=== PATIENT | female | born 1945 | race Caucasian/White ===

== ENCOUNTER → 2019-05-05 | Outpatient (REF) | payer OTHER, MEDICAID | LOC: M LAB REF 09:29 | PROVIDERS: ATTEND Nurse Practitioner Family | DX: R30.0 Dysuria (principal) ==

== ENCOUNTER → 2019-06-18 | Outpatient (REF) | payer OTHER, MEDICAID | LOC: M LAB REF 16:24 | PROVIDERS: ATTEND Internal Medicine | DX: R41.0 Disorientation, unspecified (principal); R30.0 Dysuria ==

== ENCOUNTER 2019-12-03 12:59 | Observation (INO) | payer MEDICARE, MEDICAID ==
[~2019-12-03] VITALS: Ht 165.1 cm; Wt 69.4 kg
[2019-12-03] MEDS ORDERED: LIDOCAINE 2% 5ML JELLY UROJET TOP ONE (13:45)
[2019-12-03] MEDS: NS 1,000 ML IV SCH (14:18)
[2019-12-03 14:30] LABS: BASO # 0.1 10^3/uL (0.0-0.2); BASO % 0.6 % (0.0-1.0); EOS # 0.2 10^3/uL (0.0-0.5); EOS % 1.9 % (0.0-3.0); HEMATOCRIT 38.5 % (36.0-47.0); HEMOGLOBIN 12.4 g/dl (12.0-15.5); LYMPH # 2.7 10^3/uL (1.5-5.0); LYMPH % 34.2 % (24.0-44.0); MEAN CORPUSCULAR HEMOGLOBIN 29.8 pg (27.0-33.0); MEAN CORPUSCULAR HGB CONC 32.2 g/dl (32.0-36.5); MEAN CORPUSCULAR VOLUME 92.5 fl (80.0-96.0); MONO # 0.7 10^3/uL (0.0-0.8); NEUTROPHILS # 4.2 10^3/uL (1.5-8.5); PLATELET COUNT, AUTOMATED 247 10^3/uL (150-450); RED BLOOD COUNT 4.16 10^6/uL (4.00-5.40); WHITE BLOOD COUNT 7.7 10^3/uL (4.0-10.0)
[2019-12-03 14:42] LABS: INR 0.97; PROTHROMBIN TIME 12.6 SECONDS (11.8-14.0)
[2019-12-03 14:51] LABS: ALBUMIN 3.3 GM/DL (3.2-5.2); BILIRUBIN,DIRECT 0.1 MG/DL (0.0-0.2); BILIRUBIN,TOTAL 0.3 MG/DL (0.2-1.0); CALCIUM LEVEL 9.6 MG/DL (8.8-10.2); CREATININE FOR GFR 0.98 MG/DL (0.55-1.30); GLOMERULAR FILTRATION RATE 58.9 (>39); POTASSIUM SERUM 4.6 MEQ/L (3.5-5.1); TOTAL PROTEIN 6.1 GM/DL (6.4-8.2)
[2019-12-03] MEDS ORDERED: ASPIRIN 325 MG TAB PO ONE (15:30)
[2019-12-03] MEDS ORDERED: SERT25TA21 PO (15:31)
[2019-12-03] MEDS ORDERED: LISI10TA4 PO (15:31)
[2019-12-03] MEDS ORDERED: TRAZ-252 PO (15:31)
[2019-12-03] MEDS ORDERED: TAB-TAB3 PO (15:31)
[2019-12-03] MEDS ORDERED: COMB0.2S OU (15:31)
[2019-12-03] MEDS ORDERED: BIMA01SOL OU (15:31)
[2019-12-03] MEDS ORDERED: MEMA28CA PO (15:31)
[2019-12-03] MEDS ORDERED: OLAN20TA14 PO (15:31)
[2019-12-03] MEDS ORDERED: ECOT81TA5 PO (15:32)
--- NOTE | 2019-12-03 15:52 | REP ---
CT BRAIN WITHOUT CONTRAST: HISTORY: Collapse. No comparison CT study. Comparison brain MRI exam is from March 16, 2015. CT FINDINGS: Digital preliminary investigator welfare radiograph is unremarkable. Bone window settings demonstrate an intact calvarium. There is some vascular calcification in the distal internal carotid arteries bilaterally. The visualized paranasal sinuses are clear. No intraorbital abnormality is seen. On soft tissue window settings, there is mild generalized volume loss. There is an old lacunar infarct pattern in the basal ganglia on the left. There is no evidence of acute infarction. There is no evidence of intracranial hemorrhage. The left basal ganglia infarct pattern is unchanged from the comparison MRI study 2014. IMPRESSION: Diffuse atrophy, vascular calcification and old left basal ganglia lacunar infarcts. No acute intracranial abnormality is seen. Electronically Signed by Kartik Martin MD 12/03/2019 03:53 P
[2019-12-03 16:07] LABS: FREE T4 1.22 NG/DL (0.76-1.46); THYROID STIMULATING HORMONE 2.28 uIU/ML (0.358-3.740)
--- NOTE | 2019-12-03 16:11 | REP ---
CHEST, SINGLE VIEW: There is no evidence of acute infiltrate. No pleural effusion is seen. The heart is normal in size. The mediastinal silhouette is unremarkable. The visualized osseous structures are intact. IMPRESSION: No acute pulmonary disease. Electronically Signed by James Arellano MD 12/06/2019 12:00 P
--- NOTE | 2019-12-03 16:57 | HPEPDOC ---
[facility] Medical History & Physical Date of Admission December 03, 2019 Date of Service: December 03, 2019 Attending Physician: A History and Physical CHIEF COMPLAINT: falls and new onset A.fib HISTORY OF PRESENT ILLNESS: Patient is a 74-year-old female with past medical history of hypertension, dementia, presenting with falls. In the ED she was found to have a new onset atrial fibrillation. She lives with daughter, Mariaelena, who is the healthcare proxy, for the last 2 years, with recently no ting patients mental status changes in the last 4-5 months. At baseline, patient is able to ambulate without difficulty, but has been increasingly unable to communicate. Patient does have AIDS that care for her, but is to note that within the last few months she has had a decline in focusing to eat. Last Friday, approximately 5 days ago, patient fell, and was noted to be unsteady on her feet. When consult saying her PCP, family was directed to send patient to the ED for further evaluation. In the ED, patient was afebrile, blood pressure ranged from systolics of 119-146, saturating well on room air. Labs include CBC, BMP, lactic elation studies all within normal limits. I subsequently added Thyroid labs, which were also within normal limits. COVID screening pending. Head CT feels diffuse atrophy, no acute findings, and an old left basal ganglia lacunar infarct. Daughter reports the patient has no history of known strokes. Chest x-ray was negative for acute findings. ROS: 10 point review systems negative except per above. PMH: see above PSH: See above, 2 , hysterectomy secondary pelvic cancer Family history: Reviewed and noncontributory Social history: former smoker (quit March), no consumes alcohol, denies drugs, works at [employer] Medications: Reviewed Allergies: NKDA PHYSICAL EXAMINATION: VITAL SIGNS: Please see below. GENERAL: confused male who appears confused, not aggressive HEENT: Normocephalic, atraumatic, dry mucous membranes, has left ptosis, uncooperative with light exam NECK: Supple CARDIOVASCULAR EXAMINATION: S1, S2 RESPIRATORY EXAMINATION: Diminished ABDOMINAL EXAMINATION: soft EXTREMITIES: no edema SKIN: No rash NEUROLOGICAL EXAMINATION: Awake PSYCHIATRIC EXAMINATION: no capacity Patient is a 74-year-old female with past medical history of hypertension, dementia, presenting with falls. In the ED she was found to have a new onset atrial fibrillation. Inpatient, telemetry #new onset A-fib: Unclear etiology, she does have a history of elevated cancer over 30 years ago, will start diltiazem 120 twice a day, Xarelto, CHADSVASC: 6, HAS-Bled score 3, but currently, starting on anticoagulation benefits outweigh the risks #Hx of CVA on imaging: Echo secondary to A. fib, continue home ASA #History of dementia: Likely contributed by CVA, will continue home meds, one-to-one sitter, speech therapy eval #HTN: Well continue home med DVT ppx: NOAC DNR/DNI, I spoke with health care proxy, she will bring in her forms and updated MOLST form which I will sign once received. Dispo: anticipated dc 12/06/19, home vs NH, pending Admission time spent 40 minutes. Vital Signs Vital Signs Date Time Temp Pulse Resp B/P (MAP) Pulse Ox O2 Delivery O2 Flow Rate FiO2 12/03/19 13:36 Room Air 12/03/19 13:36 12/03/19 13:29 93 100 12/03/19 13:00 98.1 18 Laboratory Data Labs 24H Laboratory Tests 2 12/03/19 14:14: Prothrombin Time 12.6, Prothromb Time International Ratio 0.97, Urine Color YELLOW, Urine Appearance CLEAR, Urine pH 6.0, Urine Specific [place] 1.005, Urine Protein NEGATIVE, Urine Glucose (UA) NEGATIVE, Urine Ketones NEGATIVE, Urine Blood NEGATIVE, Urine Nitrite NEGATIVE, Urine Bilirubin NEGATIVE, Urine Urobilinogen 0.2, Urine Leukocyte Esterase NEGATIVE, Urine WBC (Auto) 1, Urine RBC (Auto) 2, Urine Hyaline Casts (Auto) 0, Urine Bacteria (Auto) NEGATIVE, Urine Squamous Epithelial Cells 0, Urine Sperm (Auto) 12/03/19 14:15: Immature Granulocyte % (Auto) 0.3, Neutrophils (%) (Auto) 54.0, Lymphocytes (%) (Auto) 34.2, Monocytes (%) (Auto) 9.0H, Eosinophils (%) (Auto) 1.9, Basophils (%) (Auto) 0.6, Neutrophils # (Auto) 4.2, Lymphocytes # (Auto) 2.7, Monocytes # (Auto) 0.7, Eosinophils # (Auto) 0.2, Basophils # (Auto) 0.1, Nucleated Red Blood Cells % (auto) 0.0, Anion Gap 4L, Glomerular Filtration Rate 58.9, Calcium Level 9.6, Total Bilirubin 0.3, Direct Bilirubin 0.1, Aspartate Amino Transf (AST/SGOT) 17, Alanine Aminotransferase (ALT/SGPT) 18, Alkaline Phosphatase 106, Total Protein 6.1L, Albumin 3.3, Albumin/Globulin Ratio 1.18, Lipase 44L, Thyroid Stimulating Hormone (TSH) 2.280, Free Thyroxine 1.22 12/03/19 16:19: CBC/BMP Laboratory Tests 12/03/19 14:15 Home Medications Scheduled Aspirin (Ecotrin) 81 Mg Tablet.dr, 81 MG PO QAM CRUSH Bimatoprost (Lumigan) 0.01% 2.5ML Drops, 1 DROP OU QHS Brimonidine Tartrate/Timolol (Combigan 0.2%-0.5% Eye Drops) 5 Ml Drops, 1 DROP OU BID Lisinopril (Lisinopril) 10 Mg Tablet, 10 MG PO QAM CRUSH Memantine HCl (Memantine HCl ER) 28 Mg Cap.spr.24, 28 MG PO QAM CRUSH Multivitamin (Tab-A-Chela) 1 Each Tablet, 1 TAB PO QAM CRUSH Olanzapine (Olanzapine) 20 Mg Tablet, 10 MG PO BID CRUSH Sertraline HCl (Sertraline HCl) 25 Mg Tablet, 25 MG PO QAM CRUSH Trazodone HCl (Trazodone HCl) 50 Mg Tablet, 50 MG PO QHS CRUSH Allergies Coded Allergies: No Known Allergies (Unverified , 12/03/19) A-FIB/CHADSVASC A-FIB History Current/History of A-Fib/PAF?: Yes Current PO Anticoag Therapy: Yes MAURICE FRANCIS MD December 03, 2019 16:57
[2019-12-03 17:55] VITALS: BP 130/91
[2019-12-03] MEDS: RIVAROXABAN 20 MG TAB (XARELTO) PO SCH (18:22)
[2019-12-03 20:00] VITALS: BP 139/84
[2019-12-04] VITALS (7 sets, daily range): BP systolic 112–170; BP diastolic 60–88
[2019-12-04] MEDS: NS 1,000 ML IV SCH ×2 (00:12→08:44)
[2019-12-04 05:42] LABS: HEMOGLOBIN 11.8 g/dl (12.0-15.5); MEAN CORPUSCULAR HEMOGLOBIN 30.3 pg (27.0-33.0); MEAN CORPUSCULAR HGB CONC 32.8 g/dl (32.0-36.5); MEAN CORPUSCULAR VOLUME 92.3 fl (80.0-96.0); PLATELET COUNT, AUTOMATED 233 10^3/uL (150-450); WHITE BLOOD COUNT 5.2 10^3/uL (4.0-10.0)
[2019-12-04 05:47] LABS: BLOOD UREA NITROGEN 14 MG/DL (7-18); CARBON DIOXIDE LEVEL 29 MEQ/L (21-32); CHLORIDE LEVEL 111 MEQ/L (98-107); CREATININE FOR GFR 0.87 MG/DL (0.55-1.30); GLOMERULAR FILTRATION RATE > 60.0 (>39); GLUCOSE, FASTING 80 MG/DL (70-100); SODIUM LEVEL 146 MEQ/L (136-145)
--- NOTE | 2019-12-04 08:53 | IPNPDOC ---
Date Seen The patient was seen on 12/04/19. Progress Note SUBJECTIVE: Pt had no o/n events, slept well. Repeat EKG reveals A. fib on my eval, similar to yesterday's EKG. OBJECTIVE PHYSICAL EXAMINATION: VITAL SIGNS: Please see below. PHYSICAL EXAMINATION: VITAL SIGNS: Please see below. GENERAL: confused female sleeping comfortably HEENT: Normocephalic, atraumatic, dry mucous membranes NECK: Supple CARDIOVASCULAR EXAMINATION: S1, S2 RESPIRATORY EXAMINATION: no effort ABDOMINAL EXAMINATION: soft EXTREMITIES: no edema SKIN: No rash NEUROLOGICAL EXAMINATION: sleeping PSYCHIATRIC EXAMINATION: no capacity Patient is a 74-year-old female with past medical history of hypertension, dementia, presenting with falls. In the ED she was found to have a new onset atrial fibrillation. Inpatient, telemetry #new onset A-fib: Unclear etiology, she does have a history of elevated cancer over 30 years ago, will start diltiazem 120 twice a day, Xarelto, CHADSVASC: 6, HAS-Bled score 3, but currently, starting on anticoagulation benefits outweigh the risks, f/u PT #Hx of CVA on imaging: f/u Echo secondary to A. fib, continue home ASA #History of dementia: Likely contributed by CVA, will continue home meds, one-to-one sitter, speech therapy eval, per dietary, recs for pureed diet #HTN: Well continue home med DVT ppx: NOAC DNR/DNI, updated MOLST form Dispo: f/u with PT and will d/w daughter on disposition, anticipate dc home vs NH Friday12/06/19. VS, I&O, 24H, Micheal Vital Signs/I&O Vital Signs Date Time Temp Pulse Resp B/P (MAP) Pulse Ox O2 Delivery O2 Flow Rate FiO2 12/04/19 08:44 80 119/86 12/04/19 08:00 96.7 18 98 Room Air I&O- Last 24 Hours up to 6 AM 12/04/19 05:59 Intake Total 710 ml Output Total 50 ml Balance 660 ml Laboratory Data 24H LABS Laboratory Tests 2 12/03/19 14:14: Prothrombin Time 12.6, Prothromb Time International Ratio 0.97, Urine Color YELLOW, Urine Appearance CLEAR, Urine pH 6.0, Urine Specific [place] 1.005, Urine Protein NEGATIVE, Urine Glucose (UA) NEGATIVE, Urine Ketones NEGATIVE, Urine Blood NEGATIVE, Urine Nitrite NEGATIVE, Urine Bilirubin NEGATIVE, Urine Urobilinogen 0.2, Urine Leukocyte Esterase NEGATIVE, Urine WBC (Auto) 1, Urine RBC (Auto) 2, Urine Hyaline Casts (Auto) 0, Urine Bacteria (Auto) NEGATIVE, U rine Squamous Epithelial Cells 0, Urine Sperm (Auto) 12/03/19 14:15: Immature Granulocyte % (Auto) 0.3, Neutrophils (%) (Auto) 54.0, Lymphocytes (%) (Auto) 34.2, Monocytes (%) (Auto) 9.0H, Eosinophils (%) (Auto) 1.9, Basophils (%) (Auto) 0.6, Neutrophils # (Auto) 4.2, Lymphocytes # (Auto) 2.7, Monocytes # (Auto) 0.7, Eosinophils # (Auto) 0.2, Basophils # (Auto) 0.1, Nucleated Red Blood Cells % (auto) 0.0, Anion Gap 4L, Glomerular Filtration Rate 58.9, Calcium Level 9.6, Total Bilirubin 0.3, Direct Bilirubin 0.1, Aspartate Amino Transf (AST/SGOT) 17, Alanine Aminotransferase (ALT/SGPT) 18, Alkaline Phosphatase 106, Total Protein 6.1L, Albumin 3.3, Albumin/Globulin Ratio 1.18, Lipase 44L, Thyroid Stimulating Hormone (TSH) 2.280, Free Thyroxine 1.22 12/03/19 16:19: Coronavirus (COVID-19)(PCR) NEGATIVE 12/04/19 05:13: Nucleated Red Blood Cells % (auto) 0.0, Anion Gap 6L, Glomerular Filtration Rate > 60.0, Calcium Level 9.0 CBC/BMP Laboratory Tests 12/03/19 14:15 12/04/19 05:13 MAURICE FRANCIS MD December 04, 2019 08:53
[2019-12-04] MEDS: lisinopriL 10 MG TAB PO SCH (09:26)
[2019-12-04] MEDS: SERTRALINE HCL 25 MG TABLET PO SCH (09:26)
[2019-12-04] MEDS: ASPIRIN 81 MG CHEW TABLET PO SCH (09:26)
[2019-12-04] MEDS: OLANZapine 10 MG TAB PO SCH ×2 (10:41→20:10)
--- NOTE | 2019-12-04 14:24 | ECHO ---
DATE OF STUDY: 12/04/2019 REFERRING PHYSICIAN: Dr. Kiersten Bains INDICATION: Heart failure, unspecified. HEIGHT: 65 inches. WEIGHT: 72 kg. 2D MEASUREMENTS: Left atrium: 4.0 cm Aortic root: 3.3 cm Ventricular septum: 1.14 cm Posterior wall: 1.10 cm Left ventricle diastole: 3.7 cm LVOT: 1.9 cm Inferior vena cava: 1.5 cm (more than 50% respiratory variation) DOPPLER MEASUREMENTS: Trace aortic regurgitation. No aortic stenosis. Aortic valve velocity: 88.9 cm/s LVOT velocity: 86.2 cm/s LVOT VTI: 20.4 cm Mild mitral regurgitation. Mitral E velocity: 78.4 cm/s Mitral A velocity: 95.5 cm/s Very mild tricuspid regurgitation. Estimated right ventricle systolic pressure: 27-32 mmHg assuming a right pressure of 5-10 mmHg. No pulmonic regurgitation. Pulmonary acceleration time: 127 ms MITRAL ANNULAR TISSUE DOPPLER: E prime septal: 5.33 cm/s E prime lateral: 6.42 cm/s DESCRIPTION: Rhythm was sinus. This was a moderately technically difficult echocardiogram. This was a 2D, M-mode, color flow Doppler and pulse wave Doppler examination and included mitral annular tissue Doppler. CONCLUSIONS: 1. Normal left ventricle internal dimensions and wall thickness. Normal regional LV wall motion and wall thickening. Normal LV systolic function. Grade 1 LV diastolic dysfunction (impaired relaxation filling pattern). 2. Mild left atrial dilatation. 3. Moderate aortic valve sclerosis of a three-cuspid aortic valve. Trace aortic regurgitation. No aortic stenosis. 4. Mild mitral annular calcification with mild mitral regurgitation. 5. Bubble study negative for detection of right to left intracardiac shunting. 6. Otherwise normal-appearing echocardiogram Doppler findings.
[2019-12-04] MEDS: RIVAROXABAN 20 MG TAB (XARELTO) PO SCH (17:05)
[2019-12-04] MEDS ORDERED: traZODone 50 MG TAB PO SCH (21:00)
[2019-12-05 04:00] VITALS: BP 161/84
[2019-12-05 05:36] LABS: HEMATOCRIT 37.7 % (36.0-47.0); HEMOGLOBIN 12.5 g/dl (12.0-15.5); MEAN CORPUSCULAR HEMOGLOBIN 30.1 pg (27.0-33.0); MEAN CORPUSCULAR HGB CONC 33.2 g/dl (32.0-36.5); MEAN CORPUSCULAR VOLUME 90.8 fl (80.0-96.0); PLATELET COUNT, AUTOMATED 238 10^3/uL (150-450); RED BLOOD COUNT 4.15 10^6/uL (4.00-5.40); WHITE BLOOD COUNT 6.7 10^3/uL (4.0-10.0)
[2019-12-05 06:03] LABS: BLOOD UREA NITROGEN 14 MG/DL (7-18); CALCIUM LEVEL 9.6 MG/DL (8.8-10.2); CARBON DIOXIDE LEVEL 31 MEQ/L (21-32); CHLORIDE LEVEL 109 MEQ/L (98-107); CREATININE FOR GFR 0.93 MG/DL (0.55-1.30); GLOMERULAR FILTRATION RATE > 60.0 (>39); GLUCOSE, FASTING 91 MG/DL (70-100); POTASSIUM SERUM 4.1 MEQ/L (3.5-5.1); SODIUM LEVEL 144 MEQ/L (136-145)
[2019-12-05 08:00] VITALS: BP 146/82
[2019-12-05] MEDS: SERTRALINE HCL 25 MG TABLET PO SCH (08:42)
[2019-12-05] MEDS: OLANZapine 10 MG TAB PO SCH (08:42)
[2019-12-05] MEDS: ASPIRIN 81 MG CHEW TABLET PO SCH (08:43)
[2019-12-05] MEDS: lisinopriL 10 MG TAB PO SCH (08:43)
--- NOTE | 2019-12-05 09:46 | ECGEPIP ---
[facility] Test Date: 2019-12-04 Pat Name: TOBY MICHAELS Department: Room: E1062-23 Gender: Female [place] Headgate Operator: : 1945 Requested By: MAURICE Oreilly Order Number: [id number] Reading MD: Josué Allan Measurements Intervals [place] Rate: 76 P: 36 AR: 251 QRS: -22 QRSD: 116 T: 60 QT: 380 QTc: 428 Interpretive Statements SINUS RHYTHM WITH FIRST DEGREE AV BLOCK Sinus pause 1 BORDERLINE LEFT AXIS DEVIATION LOW QRS VOLTAGE IN PRECORDIAL LEADS INCOMPLETE RIGHT BUNDLE BRANCH BLOCK MINIMAL VOLTAGE CRITERIA FOR LVH NONSPECIFIC ST & T-WAVE ABNORMALITY Decreased heart rate and rhythm change compared with 12/03/2019 Electronically Signed on 12-05-2019 9:46:34 EDT by Josué Allan
--- NOTE | 2019-12-05 10:53 | DS.PDOC ---
Discharge Summary General Date of Admission December 03, 2019 at 13:00 Date of Discharge 12/05/19 Discharge Summary PROCEDURES PERFORMED DURING STAY: echo. ADMITTING DIAGNOSES: 1. new onset A-fib. DISCHARGE DIAGNOSES: 1. changes in EKG. COMPLICATIONS/CHIEF COMPLAINT: Falls,New Onset A Fib. HISTORY OF PRESENT ILLNESS/HOSPITAL COURSE: Patient is a 74-year-old female with past medical history of hypertension, dementia, presenting with falls. In the ED she was found to have a new onset atrial fibrillation. She was admitted into inpatient, telemetry. Initial plan of atrial fibrillation dx on EKG was to start diltiazem 120 twice a day, Xarelto, CHADSVASC: 6, HAS-Bled score 3. It appears t hat patient had previous stroke on CT head on the left lacunar region, noting no prior strokes, per daughter. She also had echo performed on 12/04/2019, revealing grade 1 diastolic dysfunction, mild left atrial dilation, negative for [id number] shunting on bubble study. CODE STATUS was verified to be DNR/DNI, health care proxy, Mariaelena, daughter. Poppy Dugan was also consulted and recomm ended pured diet. Patient does have 24-hour care at home, upon PT eval, pt was uncooperative but will clear to discharge with family care. Discussed with daughter, no skilled nursing at this time. Discussed case with cardiology, patient likely had multifocal atrial tachycardia initially, and is currently on sinus, continue calcium channel anand. At discharge, hold NOAC, spoke with daughter, check blood pressure twice a day, record, follow-up with PCP in 1 week and adjust BP meds accordingly, can consider increasing lisinopril to 20 mg daily, especially with lacunar infarct on head CT. PHYSICAL EXAMINATION: VITAL SIGNS: Please see below. GENERAL: No distress HEENT: Normocephalic, atraumatic, moist mucous membranes NECK: Supple CARDIOVASCULAR EXAMINATION: S1, S2 RESPIRATORY EXAMINATION: CTAB ABDOMINAL EXAMINATION: Soft, nontender, nondistended, positive bowel sounds EXTREMITIES: no edema SKIN: No rash NEUROLOGICAL EXAMINATION: Awake PSYCHIATRIC EXAMINATION: Flat affect, does not have capacity DISCHARGE CONDITION: Stable. TIME SPENT ON DISCHARGE: 32 minutes spent Vital Signs/I&Os Vital Signs Date Time Temp Pulse Resp B/P (MAP) Pulse Ox O2 Delivery O2 Flow Rate FiO2 12/05/19 08:43 146/82 12/05/19 08:42 103 12/05/19 08:00 97.6 18 97 Room Air I&O- Last 24 Hours up to 6 AM 12/05/19 06:00 Intake Total 1300 ml Output Total 0 ml Balance 1300 ml Laboratory Data Labs 24H Laboratory Tests 2 12/05/19 05:17: Nucleated Red Blood Cells % (auto) 0.0, Anion Gap 4L, Glomerular Filtration Rate > 60.0, Calcium Level 9.6 CBC/BMP Laboratory Tests 12/05/19 05:17 Discharge Medications Scheduled Aspirin (Ecotrin) 81 Mg Tablet.dr, 81 MG PO QAM, (Reported) CRUSH Bimatoprost (Lumigan) 0.01% 2.5ML Drops, 1 DROP OU QHS, (Reported) Brimonidine Tartrate/Timolol (Combigan 0.2%-0.5% Eye Drops) 5 Ml Drops, 1 DROP OU BID, (Reported) Diltiazem HCl (Diltiazem HCl) 30 Mg Tablet, 30 MG PO QID Lisinopril (Lisinopril) 10 Mg Tablet, 10 MG PO QAM, (Reported) CRUSH Memantine HCl (Memantine HCl ER) 28 Mg Cap.spr.24, 28 MG PO QAM, (Reported) CRUSH Multivitamin (Tab-A-Chela) 1 Each Tablet, 1 TAB PO QAM, (Reported) CRUSH Olanzapine (Olanzapine) 20 Mg Tablet, 10 MG PO BID, (Reported) CRUSH Sertraline HCl (Sertraline HCl) 25 Mg Tablet, 25 MG PO QAM, (Reported) CRUSH Trazodone HCl (Trazodone HCl) 50 Mg Tablet, 50 MG PO QHS, (Reported) CRUSH Allergies Coded Allergies: No Known Allergies (Unverified , 12/03/19) MAURICE FRANCIS MD December 05, 2019 10:50
--- NOTE | 2019-12-05 11:08 | ECGEPIP ---
[facility] - ED Test Date: 2019-12-03 Pat Name: TOBY MICHAELS Department: Room: [place] [address] Gender: Female Flight Physician: robby : 1945 Requested By: SIMBA ENRIQUE Order Number: [id number] Reading MD: Elizabeth Mayo Measurements Intervals [place] Rate: 108 P: [place]: 0 QRS: -14 QRSD: 118 T: 60 QT: 332 QTc: 447 Interpretive Statements ATRIAL FIBRILLATION WITH RAPID VENTRICULAR RESPONSE INCOMPLETE RIGHT BUNDLE BRANCH BLOCK ABNORMAL RHYTHM ECG NO PRIOR Electronically Signed on 12-05-2019 11:07:48 EDT by Elizabeth Mayo
[2019-12-05] MEDS ORDERED: DILT30TA PO (11:14)
[2019-12-05 12:00] VITALS: BP 138/52
[2019-12-05 12:19] VITALS: BP 138/52
== END 2019-12-05 14:12 | disposition home or self-care (01) ==
LOC: M ED 12:59 → M ED INP 13:00 → ENRESERV 16:09 → M PCU 17:46
PROVIDERS: ADMIT Family Medicine; ATTEND Family Medicine
DX: I48.91 Unspecified atrial fibrillation (principal); R94.31 Abnormal electrocardiogram [ECG] [EKG]; I11.0 Hypertensive heart disease with heart failure; I50.30 Unspecified diastolic (congestive) heart failure; F03.90 Unspecified dementia, unspecified severity, without behavioral disturbance, psychotic disturbance, mood disturbance, and anxiety; Z91.81 History of falling; Z86.73 Personal history of transient ischemic attack (TIA), and cerebral infarction without residual deficits; Z66 Do not resuscitate; Z79.899 Other long term (current) drug therapy; Z79.82 Long term (current) use of aspirin; Z87.891 Personal history of nicotine dependence; Z85.43 Personal history of malignant neoplasm of ovary
CPT/HCPCS: 36415; 51701; 70450; 71045; 80048; 80076; 81001; 83690; 84439; 84443; 85025; 85027; 85610; 93005; 93041; 93306; 96360; 96361; 99285; G0378; U0002